=== PATIENT | female | born 1960 | race Caucasian/White ===

== ENCOUNTER 2021-11-29 01:11 | Day surgery (SDC) | payer OTHER, SELFPAY ==
[2021-11-23 10:07] VITALS: BMI 29.2
--- NOTE | 2021-11-23 10:18 | PC.NURSE ---
Report to the Outpatient Waiting Room, entrance under the green pavilion located off [facility], at time 0600 on date 11/29/21. OR Time: 0730. - You and your visitor will be asked a series of questions to screen for COVID 19 for your protection. - A mask is required within the hospital. One visitor will be allowed to accompany the patient into the hospital. Patients visitor will be instructed to remain with patient at all times or leave the building. We will allow the visitor to come back to the postoperative area when patient is ready. Preoperative COVID Testing Requirements: No COVID Test needed if: (proof is required; if not received patient will have Rapid Test prior to entry) - Patient has received COVID Vaccine at least 14 days prior to procedure date or - Patient has positive COVID test result within last 90 days of surgery date. COVID Test needed if above criteria is not met Patients may have clear liquids (water, carbonated beverages, clear teas, apple juice) until 3 hours prior to surgery with a maximum of 20 ounces. - No food from midnight until time of surgery Take the following medications with a SIP of water the morning of surgery: DULOXETINE Medications to discontinue per physician: VITAMINS/SUPPLEMENTS Date to take last dose: 11/25/[address] TORRES Please no make-up, nail tamazight, hairspray, perfume, deodorant, or body powder the day of surgery. No jewelry (including any body piercings) or valuables the day of surgery, leave them at home. Please take a shower or bath the night before, or the morning of, surgery with an antibacterial soap. Wear comfortable, loose fitting clothing. - Jewelry must be removed prior to entering the operating room. Rings and piercings that are not removed may be cut off. - The hospital will not accept responsibility for valuables. - Please leave all valuables, including medications, at home the day of surgery. If you are going home after surgery, a licensed warehouse associate driver must drive you home. - NO public transportation without another adult. - We recommend that an adult stay with you for 24 hours following discharge. - We also recommend that you do not drive, make important decision, drink alcoholic beverages, or take any drugs that were not prescribed by your health care provider for at least 24 hours after your discharge time. Follow any additional instructions given to you from your surgeon. Telephone instructions given to SHERIF BALL nd asked if any additional questions and then verbalized understanding. Patient advised to call surgeon office or pre surgery nurse liaison [phone] if any additional questions.
[2021-11-29] VITALS (10 sets, daily range): BP systolic 101–138; BP diastolic 54–85; PULSE 90–104; RESP 12–20; TEMP 36–37.1; O2SAT 20–100
[2021-11-29] MEDS: ACETAMINOPHEN 500 MG TABLET 1000 MG PO (06:29)
[2021-11-29] MEDS: KETOROLAC 15 MG/ML VIAL (*BKC) IV PUSH (06:29)
[2021-11-29] MEDS: LACTATED RINGERS 1,000 ML 30 ML IV CONT ×2 (06:30→08:54)
--- NOTE | 2021-11-29 06:36 | WPDANESEPPF ---
Anes - Initial Pre Proc Eval Procedure: Operation Date: 11/29/21 07:30 Proposed Procedures p Total Vaginal Hysterectomy with Anterior Vaginal Repair - Elaine Morocho MD Date/Time: 11/29/21 06:36 Surgeon: Elaine Morocho MD Pre Op Diagnosis: uterine prolapse, cystocele Patient Data Age: 61 Gender: F Height: 1.57 m Weight: 72.57 kg Allergies Allergy/AdvReac Type Severity Reaction Status Date / Time No Known Allergies Allergy Verified 11/23/21 10:01 Home Medications Medication Instructions Recorded Confirmed Type amitriptyline [Elavil] 25 mg PO HS 11/23/21 11/23/21 History amlodipine-benazepril [Lotrel] 1 cap PO DAILY 11/23/21 11/23/21 History aspirin [Baby Aspirin] 81 mg PO DAILY 11/23/21 11/23/21 History atorvastatin 10 mg PO DAILY 11/23/21 11/23/21 History cholecalciferol (vitamin D3) 50 mcg PO DAILY 11/23/21 11/23/21 History [Vitamin D3] duloxetine 60 mg PO DAILY 11/23/21 11/23/21 History gabapentin 300 mg PO HS 11/23/21 11/23/21 History lactobacillus combo no.11 1 cap PO DAILY 11/23/21 11/23/21 History [Probiotic] metformin 1,000 mg PO BID 11/23/21 11/23/21 History multivitamin 1 tablet PO DAILY 11/23/21 11/23/21 History omeprazole 20 mg PO DAILY 11/23/21 11/23/21 History sitagliptin [Januvia] 25 mg PO DAILY 11/23/21 11/23/21 History Laboratory Tests 11/29/21 06:22 Hgb Pending Hct Pending Patient hx anesthesia problems: none Family hx anesthesia problems: none Results Review: All pre-operative results and documents have been reviewed as part of the pre-operative evaluation. [facility] Past Medical History Medical History (Updated 11/29/21 @ 06:36 by Bob Mijares DO) Diabetes type 2, controlled GERD (gastroesophageal reflux disease) Hyperlipidemia Hypertension Surgical History Surgical History (Updated 11/29/21 @ 06:36 by Bob Mijares DO) History of cholecystectomy History of tubal ligation Social History Social History Smoking status: Never smoker Alcohol intake: never Substance use: never Substance use type: does not use Living arrangements: with family Spiritual care concerns: No Anes - Eval Final PreProcedure Day of Procedure 11/29/21 06:36 Patient weight: overweight Heart: regular rate and rhythm Lungs: clear to auscultation and normal air movement Airway: Mallampati scale class II Neurological: alert and oriented Last oral intake: >/= 8 hours ASA classification: III Emergent: no Anesthetic plan: proceed Anesthesia type and monitoring: general ETT and standard monitoring Results Review: All pre-operative results and documents have been reviewed as part of the pre-operative evaluation. Informed Consent: The patient's anesthetic plan and its attendant risks and benefits were discussed with the patient/family/POA. Questions were solicited and answers provided to the satisfaction of the patient/family/POA.
[2021-11-29 06:39] LABS: Hematocrit 38.6 % (37.0-47.0); Hemoglobin 12.6 g/dL (12.0-15.0)
[2021-11-29 07:01] LABS: Glucose Point of Care 147 mg/dl (65-105)
--- NOTE | 2021-11-29 07:14 | WPDHPUPDATE1 ---
History and Physical Update Update Date/Time: 11/29/21 07:14 History and Physical has been reviewed, including an updated exam of the patient. There are NO changes in the patient's condition. Risks, benefits, and alternatives have been discussed and questions answered. Patient agrees to proceed with procedure.
--- NOTE | 2021-11-29 07:15 | PM.IMHP ---
H&P: HPI History of Present Illness Date/Time: 11/29/21 07:15 Chief Complaint: Uterine prolapse and cystocele Narrative: The patient is a 61-year-old 3 para 3 admitted for total vaginal hysterectomy anterior vaginal repair secondary to prolapse with cystocele. The patient has had slowly worsening vaginal prolapse as well as worsening cystocele over the past several years. She has tried a pessary but it was not comfortable for her. Patient has decided to proceed with surgical treatment. Due to the large cystocele the patient underwent supported urodynamics which revealed no genuine stress incontinence. Risks of surgery including infection, bleeding, injury to internal organs (bowel, bladder, ureters), deep vein thrombosis, anesthesia, and recurrent prolapse were reviewed with the patient. In addition it was discussed that she may developed genuine stress incontinence despite normal supported urodynamics. The patient has received medical clearance. Patient voices understanding and agrees to proceed. Review of Systems Constitutional: Constitutional: Reports night sweats (And hot flashes) PMFSH Past Medical History Medical History (Updated 11/29/21 @ 07:20 by Elaine Morocho MD) Diabetes type 2, controlled GERD (gastroesophageal reflux disease) Hyperlipidemia Hypertension (normal spontaneous vaginal delivery) Surgical History Surgical History (Updated 11/29/21 @ 06:36 by Bob Mijares DO) History of cholecystectomy History of tubal ligation Social History Social History Smoking status: Never smoker Alcohol intake: never Substance use: never Substance use type: does not use Living arrangements: with family Spiritual care concerns: No Meds Home Medications and Allergies Home Medications Medication Instructions Recorded Confirmed Type amitriptyline [Elavil] 25 mg PO HS 11/23/21 11/29/21 History amlodipine-benazepril [Lotrel] 1 cap PO DAILY 11/23/21 11/29/21 History aspirin [Baby Aspirin] 81 mg PO DAILY 11/23/21 11/29/21 History atorvastatin 10 mg PO DAILY 11/23/21 11/29/21 History cholecalciferol (vitamin D3) 50 mcg PO DAILY 11/23/21 11/29/21 History [Vitamin D3] duloxetine 60 mg PO DAILY 11/23/21 11/29/21 History gabapentin 300 mg PO HS 11/23/21 11/29/21 History lactobacillus combo no.11 1 cap PO DAILY 11/23/21 11/29/21 History [Probiotic] metformin 1,000 mg PO BID 11/23/21 11/29/21 History multivitamin 1 tablet PO DAILY 11/23/21 11/29/21 History omeprazole 20 mg PO DAILY 11/23/21 11/29/21 History sitagliptin [Januvia] 25 mg PO DAILY 11/23/21 11/29/21 History Allergies Allergy/AdvReac Type Severity Reaction Status Date / Time No Known Allergies Allergy Verified 11/29/21 06:39 Vital Signs Vital Signs - 24 hr 11/29/21 06:05 Temperature 96.8 F L Pulse Rate 96 Respiratory Rate 18 Blood Pressure 138/85 Pulse Oximetry 98 Exam Const: General: healthy appearing and alert Orientation/consciousness: patient oriented x3 Resp: Effort & Inspection: normal respiratory effort Auscultation: clear to auscultation bilaterally Cardio: Rate: regular rate Rhythm: regular rhythm GI: GI Palp: Yes Soft to palpation, No Tenderness to palpation present (GI) and No Palpable mass present : External Female Exam: normal external appearance Speculum Exam - Vagina: normal vaginal discharge and other (Third-degree cystocele) Speculum Exam - Cervix: normal appearance of the cervix Bimanual exam- vagina & uterus: uterine size normal, consistency normal and other (Uterus descent to 1cm above the introitus) Bimanual Exam- Adnexa, other: normal adnexae and No adnexal tenderness Neuro: General: patient oriented x3 H&P: Results Labs Labs: Short CBC 11/29/21 Range/Units 06:22 Hgb 12.6 (12.0-15.0) g/dL Hct 38.6 (37.0-47.0) % Assessment and Plan Assessment and plan (1) Cystocele with uterine prolapse: Code(s): N81.4 - Uterovaginal pro
[2021-11-29] MEDS: ceFAZolin 2 GM/D5W 50 ML 2 GM/50 ML BAG IVPB (07:25)
[2021-11-29] MEDS: LIDO 1%/EPINEPHRINE/PF 1:200,000 30 ML VIAL XX (08:39)
--- NOTE | 2021-11-29 08:48 | P.OP_ITS ---
Procedure Note - Detailed Date of Procedure 11/29/21 Pre-op Diagnosis uterine prolapse, cystocele Post-op Diagnosis Same Procedure Performed Total vaginal hysterectomy and anterior vaginal repair Surgeon Elaine Morocho MD Anesthesia General Findings Uterine prolapse with cystocele Description of Procedure The patient was taken to the operating room and placed under anesthesia in the dorsal lithotomy position. She is prepped and draped in usual sterile fashion. Short weighted speculum was placed posteriorly and the patient was placed in Trendelenburg. The Reema retractors placed anteriorly. The cervix is grasped on the anterior lip with a tenaculum and the vaginal mucosa was injected with 1% lidocaine with epinephrine in a circumferential manner around the cervix. The scalpel then used to incise the vaginal mucosa in a circumferential manner around the cervix. Anteriorly the cervix is dissected off the vaginal mucosa using sharp and blunt dissection. The peritoneum was entered with Metzenbaum scissors and the Reema retractor placed intraperitoneally. The posterior vaginal mucosa is dissected off using sharp and blunt dissection. The peritoneum was entered and the long curved weighted speculum was placed posteriorly. The cardinal and uterosacral ligaments are serially clamped, transected, and suture ligated with 0 Vicryl. These were tagged for future use. The uterine vessels were clamped, transected, and suture ligated with 0 Vicryl. The posterior cul-de-sac reveals the retroverted uterus visible. The posterior fundus is grasped with a towel clamp. The utero-ovarian ligaments are clamped and transected and the specimen removed. The pedicles were tied off using 0 Vicryl. Good hemostasis is noted at all pedicles. The peritoneum anteriorly is grasped with a Peon. The short weighted speculum was placed and the long weighted speculum removed. The posterior peritoneum was grasped with a Peon. The peritoneum was closed in a pursestring fashion incorporating the previously tagged uterosacral cardinal ligaments. The vaginal mucosa was then closed using 0 Vicryl in a running locked fashion. The Reema retractor is then removed. The Allis clamps were used to grasp the base of the cystocele at 5 and 7. The intervening tissue was incised with a scalpel. The vaginal mucosa was injected in the midline of the cystocele with 1% lidocaine with epinephrine. The vaginal mucosa was then dissected off the cystocele in the midline using sharp and blunt dissection. The mucosa is incised with scissors and grasped with Allis clamps as the dissection proceeded. Once the apex was reached a single clamp was benjy will at the apex on the vaginal mucosa. The lateral dissection of the vaginal mucosa off the cystocele was performed using sharp and blunt dissection. The cystocele was then reduced use 0 Ethibond interrupted horizontal mattress sutures. The excess vaginal mucosa is excised with Metzenbaum scissors. The vaginal mucosa was closed using 0 Vicryl in a running locked fashion. Vaginal packing is placed coated with Premarin cream. All instruments are removed and sponge, needle, and instrument counts are correct. Patient is awakened from anesthesia and taken to recovery in stable condition. Estimated Blood Loss 25 Drains Yes (Wilkes) Packing Yes (Vaginal) Pathology Yes (Uterus) Complications No immediate complications Condition Stable Disposition PACU
[2021-11-29 09:12] LABS: Glucose Point of Care 168 mg/dl (65-105)
--- NOTE | 2021-11-29 10:11 | PC.NURSE ---
This patient, Renee Herman, was received from PACU on 11/29/21 at 1000. Patient/family oriented to unit policies and routines
[2021-11-29] MEDS: DEXTROSE 5%/LACTATED RINGERS 1,000 ML 125 ML IV CONT (10:56)
[2021-11-29] MEDS: HYDROcodone/acetaminophen (*CRX) 5-325 MG TABLET 1 TAB PO ×3 (10:56→17:54)
[2021-11-29] MEDS: KETOROLAC 30 MG/ML VIAL (*BKC) IV PUSH (14:22)
[2021-11-29] MEDS: metFORMIN HCL 500 MG TABLET 1000 MG PO (17:54)
[2021-11-29] MEDS: HYDROcodone/acetaminophen (*CRX) 10-325 MG TABLET 1 TAB PO (21:11)
[2021-11-29] MEDS: GABAPENTIN 300 MG CAPSULE PO (21:11)
[2021-11-29] MEDS: AMITRIPTYLINE HCL 25 MG TABLET PO (21:11)
[2021-11-30 00:20] VITALS: PULSE 96; RESP 16; O2SAT 94
[2021-11-30] MEDS: IBUPROFEN 600 MG TABLET PO ×2 (00:24→08:27)
[2021-11-30] MEDS: HYDROcodone/acetaminophen (*CRX) 10-325 MG TABLET 1 TAB PO ×2 (00:24→04:11)
[2021-11-30 00:27] VITALS: BP 113/70; PULSE 96; RESP 16; TEMP 37.1; O2SAT 94
[2021-11-30 04:10] VITALS: BP 105/63; PULSE 88; RESP 16; TEMP 36.9; O2SAT 93
--- NOTE | 2021-11-30 07:43 | PM.GYNPNOP ---
[employer] - A/P Postoperative Procedures: Procedures Operation Date: 11/29/21 07:30 Actual Procedure Side Surgeon p Total Vaginal Hysterectomy with Anterior Vaginal Repair Not Applicable Elaine Morocho MD Postoperative day: 1 Postoperative status: doing well Postoperative plan: routine post-op care and discharge Time Spent With Patient Time: Total time spent is greater than 50% in coordination of care (as documented) at patient's floor/unit and/or counseling patient: Time with patient: less than 15 minutes [employer]- PN:Subj Post-Op Subjective Date/time seen: 11/30/21 07:43 Subjective: patient reports feeling better, patient has no complaints, patient desires discharge and pain is well controlled Exam Narrative: abdomen soft, nt [employer] - PN: Obj Data Vital Signs Vital Signs: Vital Signs - 24 hr 11/29/21 08:54 11/29/21 09:10 11/29/21 09:25 Temperature 97.7 F Pulse Rate 99 104 H 102 H Respiratory Rate 16 14 14 Blood Pressure 126/65 114/67 101/55 L Pulse Oximetry 95 100 91 11/29/21 09:31 11/29/21 09:40 11/29/21 10:00 Temperature 97.4 F L Pulse Rate 98 98 98 Respiratory Rate 16 12 16 Blood Pressure 103/54 L 105/56 L 114/72 Pulse Oximetry 94 98 97 11/29/21 12:00 11/29/21 16:00 11/29/21 19:40 Temperature 98.8 F 98.3 F 98.7 F Pulse Rate 104 H 100 90 Respiratory Rate 18 20 16 Blood Pressure 119/74 114/70 125/74 Pulse Oximetry 99 20 L 95 11/30/21 00:20 11/30/21 00:27 11/30/21 04:10 Temperature 98.7 F 98.4 F Pulse Rate 96 96 88 Respiratory Rate 16 16 16 Blood Pressure 113/70 105/63 Pulse Oximetry 94 94 93 Intake/Output Intake/Output: Intake & Output 11/27/21 11/28/21 11/29/21 11/30/21 23:59 23:59 23:59 23:59 Intake Total 2370 800 Output Total 2860 1950 Balance -490 -1150 Meds/Results Medications: Active Medications Generic Name Dose Route Start Last Admin Trade Name Freq PRN Reason Stop Dose Admin Hydrocodone Bitart/Acetaminophen 1 tab 11/29/21 09:54 11/29/21 17:54 Hydrocodone/Acetaminophen (*Crx) 5-325 Mg Tablet PO 1 tab Q3H PRN Administration Pain Rated 5 or Less Hydrocodone Bitart/Acetaminophen 1 tab 11/29/21 09:54 11/30/21 04:11 Hydrocodone/Acetaminophen (*Crx) 10-325 Mg Tablet PO 1 tab Q3H PRN Administration Pain Rated 6 or Greater Amitriptyline HCl 25 mg 11/29/21 21:00 11/29/21 21:11 Amitriptyline Hcl 25 Mg Tablet PO 25 mg HS CLARENCE Administration Amlodipine Besylate 10 mg 11/29/21 10:15 11/29/21 20:49 Amlodipine Besylate 5 Mg Tablet PO Not Given DAILY CLARENCE Atorvastatin Calcium 10 mg 11/29/21 09:54 11/29/21 20:45 Atorvastatin 10 Mg Tablet PO Not Given DAILY CLARENCE Duloxetine HCl 60 mg 11/30/21 09:00 Duloxetine Hcl 60 Mg Capsule.Dr PO DAILY CLARENCE Gabapentin 300 mg 11/29/21 21:00 11/29/21 21:11 Gabapentin 300 Mg Capsule PO 300 mg HS CLARENCE Administration Dextrose/Lactated Ringer's 1,000 mls @ 125 mls/hr 11/29/21 09:54 11/30/21 04:05 Dextrose 5%/Lactated Ringers IV CONT Not Given .Q8H CLARENCE Fentanyl Citrate 600 mcg in 30 mls @ 0.5 mls/hr 11/29/21 11:00 Fentanyl 600 Mcg/Ns 30 Ml Wildlife Control Agent IV CONT PRN PRN BOTTOM FINISHER Management Protocol 10 MCG/HR Ibuprofen 600 mg 11/29/21 09:54 11/30/21 00:24 Ibuprofen 600 Mg Tablet PO 600 mg Q6H PRN Administration Cramping Ketorolac Tromethamine 30 mg 11/29/21 09:54 11/29/21 14:22 Ketorolac 30 Mg/Ml Vial (*Bkc) IV PUSH 12/04/21 09:53 30 mg Q6H PRN Administration Pain Rated 4-6 Lisinopril 20 mg 11/29/21 10:15 11/29/21 20:49 Lisinopril 20 Mg Tablet PO Not Given QAM CLARENCE Metformin HCl 1,000 mg 11/29/21 09:54 11/29/21 20:47 Metformin Hcl 500 Mg Tablet PO Not Given BIDWM CLARENCE Naloxone HCl 0.1 mg 11/29/21 09:54 Naloxone Hcl 0.4 Mg/Ml Vial IV PUSH Q2M PRN Respiratory rate less than 10 Ondansetron HCl 4 mg 11/29/21 09:54 Ondansetron Inj 4 Mg/2 Ml Vial IV PUSH
--- NOTE | 2021-11-30 07:43 | PM.DS ---
DS: Admitting Diagnosis Discharge Date 11/30/21 Admitting Diagnosis uterine prolapse with cystocele DS: Discharge Diagnosis Discharge Diagnosis (1) Cystocele with uterine prolapse: Code(s): N81.4 - Uterovaginal prolapse, unspecified Status: Acute (2) History of total vaginal hysterectomy (TVH): Code(s): Z90.710 - Acquired absence of both cervix and uterus Status: Acute DS: Summary Hospital Course Hospital Course: Tolerating diet, voiding, and ambulating. Motrin helping with pain. Status at Discharge Functional status at discharge: independent ambulation Overall status at discharge: patient is progressing back to baseline Time Spent with Patient Time attestation: Total time spent providing and/or coordinating discharge services: DS: Data Data Completed and Pending Pending studies at discharge: Pending at discharge 11/29/21 08:24 Surgical [PTH] Routine Labs on day of discharge: Labs from last 24 hours 11/29/21 09:09 POC Capillary Glucose 168 H Discharge Plan Discharge Patient Disposition: Home, Self-Care Stand Alone Forms: General Discharge Instructions Discharge Medications: New hydrocodone-acetaminophen 5-325 mg Tablet 1 tablet PO Q4H PRN (Reason: Pain Rated 5 Or Less) Qty: 10 RF: 0 Continued multivitamin Tablet 1 tablet PO DAILY RF: 0 metformin 500 mg Tablet 1,000 mg PO BID RF: 0 atorvastatin 10 mg Tablet 10 mg PO DAILY RF: 0 amitriptyline 25 mg Tablet 25 mg PO HS RF: 0 gabapentin 300 mg Capsule 300 mg PO HS RF: 0 amlodipine-benazepril [Lotrel] 10-20 mg Capsule 1 cap PO DAILY RF: 0 duloxetine 60 mg Capsule,Delayed Release(Dr/Ec) 60 mg PO DAILY RF: 0 Januvia 25 mg Tablet 25 mg PO DAILY RF: 0 omeprazole 20 mg Tablet,Delayed Release (Dr/Ec) 20 mg PO DAILY RF: 0 cholecalciferol (vitamin D3) [Vitamin D3] 50 mcg (2,000 unit) Capsule 50 mcg PO DAILY RF: 0 Probiotic 15 billion cell Capsule, Sprinkle 1 cap PO DAILY RF: 0 aspirin 81 mg Tablet,Chewable 81 mg PO DAILY RF: 0
[2021-11-30 08:00] VITALS: BP 128/77; PULSE 105; RESP 18; TEMP 36.8; O2SAT 100
[2021-11-30] MEDS: SIMETHICONE 80 MG TAB.CHEW PO (08:28)
[2021-11-30] MEDS: PANTOPRAZOLE 40 MG TABLET PO (08:28)
[2021-11-30] MEDS: metFORMIN HCL 500 MG TABLET 1000 MG PO (08:29)
[2021-11-30] MEDS: DULoxetine HCL 60 MG CAPSULE.DR PO (08:29)
[2021-11-30] MEDS: amLODIPine BESYLATE 5 MG TABLET 10 MG PO (08:30)
[2021-11-30] MEDS: lisinopriL 20 MG TABLET PO (08:52)
--- NOTE | 2021-11-30 08:57 | PC.NURSE ---
Discharge instructions given to pt. including when to follow up with Dr. Morocho. Pt. states that she has appt made already. No questions or concerns voiced. Very pleasant and cooperative. at side.
--- NOTE | 2021-11-30 09:09 | WPDANESPN ---
Anes - Prog Note Post-Op Date/Time: 11/30/21 09:09 Cardiovascular status: normal Respiratory status: normal Airway patency: baseline Mental status: baseline Post-Op hydration status: normal Vital Signs: Last Vital Signs Temp 98.3 F 11/30/21 08:00 Pulse 105 H 11/30/21 08:00 Resp 18 11/30/21 08:00 BP 128/77 11/30/21 08:00 Pulse Ox 100 11/30/21 08:00 Pain Score (VAS): 0 I/O: Intake & Output 11/29/21 11/30/21 11/30/21 23:59 07:59 15:59 Intake Total 1600 800 Output Total 2250 1950 Balance -650 -1150 Laboratory Tests 11/29/21 06:22 11/29/21 09:09 POC Capillary Glucose 168 H Post-procedural complaints: none Patient Feedback: Patient satisfied with anesthetic care.Pt being discharged at time of follow-up.
== END 2021-11-30 09:10 | disposition home or self-care (01) ==
LOC: ANHSURGERY 05:59 → ANHOB2 10:00
PROVIDERS: Visit Provider Obstetrics & Gynecology Gynecology
PROC: (CPT 58260; principal; 2021-11-29 07:30)
DX: N81.4 Uterovaginal prolapse, unspecified (principal); I10 Essential (primary) hypertension; E78.5 Hyperlipidemia, unspecified; E11.9 Type 2 diabetes mellitus without complications; K21.9 Gastro-esophageal reflux disease without esophagitis; Z79.82 Long term (current) use of aspirin; Z79.84 Long term (current) use of oral hypoglycemic drugs; N84.0 Polyp of corpus uteri; N80.0 Endometriosis of uterus; D25.0 Submucous leiomyoma of uterus; D25.1 Intramural leiomyoma of uterus; D25.2 Subserosal leiomyoma of uterus
CPT/HCPCS: 57240; 58260; 36415; 82948; 85014; 85018; 86850; 86900; 86901; 88307; 99199; A9270; J0330; J0690; J1885; J2250; J2270; J2405; J2704; J3010; J7030; J7120; J7121